=== PATIENT | male | born 1985 | race Hispanic/Latino ===

== ENCOUNTER 2016-09-16 03:21 | Emergency (ER) | payer BC ==
[2016-09-16 03:47] LABS: Urine Drugs of Abuse Note Disclamer
[2016-09-16 03:59] LABS: Basophils % (Auto) 0.3 % (0.0-1.8); Eosinophils % (Auto) 4.2 % (0.0-4.3); Hematocrit 37.9 % (35.5-45.6); Hemoglobin 12.3 gm/dl (11.8-15.2); Mean Corpuscular HGB Conc 33 % (32-34); Mean Corpuscular Hemoglobin 28 pg (28-32); Mean Corpuscular Volume 87 fl (84-94); Platelet Count 254 K/mm3 (140-440); Red Blood Count 4.36 M/mm3 (3.65-5.03); White Blood Count 17.9 K/mm3 (4.5-11.0)
[2016-09-16] MEDS ORDERED: NACL 0.9% 1000 ML 1,000 ML IV ONE ×3 (04:13→06:42)
[2016-09-16 04:19] LABS: Bacteria,Urine 1+ /HPF (Negative); Bilirubin,Urine NEG (Negative); Blood,Urine NEG (Negative); Ketones,Urine NEG (Negative); Leukocyte Esterase,Urine MOD (Negative); Mucus,Urine FEW /HPF; Nitrite,Urine NEG (Negative); Urobilinogen,Urine < 2.0 mg/dL (<2.0)
[2016-09-16 04:49] LABS: Chloride TNR mmol/L (98-107); Potassium TNR mmol/L (3.6-5.0); Sodium TNR mmol/L (137-145)
[2016-09-16 04:50] LABS: Anion Gap TNR mmol/L; BUN/Creatinine Ratio TNR; Blood Urea Nitrogen TNR mg/dL (9-20); Calcium TNR mg/dL (8.4-10.2); Carbon Dioxide TNR mmol/L (22-30); Glucose TNR mg/dL (75-100)
--- NOTE | 2016-09-16 05:17 | Emergency Department Report ---
Blank Doc - Documentation Documentation: 31-year-old male with heroin overdose. Patient admits to snorting heroin (with another pt who also presented to the ED). Pt Was found unresponsive respirations at 8 respiratory minute. Patient received Narcan 4 mg and woke up. He is currently alert and responsive. Resting tachycardia noted which patient claims is his baseline. Patient anxious to leave but explained he needs a period of observation. He is cooperative at this time. However, because patient was anxious to leave initially I did sign a 1013 until he could be further cleared given that patient required Narcan for heroin overdose ( minimal 2 hours after Narcan dose). Initial labs were hemolyzed and repeat ordered. Patient has urinary leukocytosis and given a gonorrhea chlamydia ordered. 2 L of normal saline ordered. Hemoglobin A1c added for initial glucose of 200 supported on initial hemolyzed BMP. Patient to be fully seen and further evaluated by a.m. physician and 1013 may be rescinded as needed.
[2016-09-16 05:23] LABS: Anion Gap 13 mmol/L; BUN/Creatinine Ratio 8.75; Blood Urea Nitrogen 7 mg/dL (9-20); Carbon Dioxide 31 mmol/L (22-30); Chloride 101.9 mmol/L (98-107); Creatine Kinase 77 units/L (55-170); Glucose 121 mg/dL (75-100); Potassium 4.2 mmol/L (3.6-5.0); Sodium 142 mmol/L (137-145)
--- NOTE | 2016-09-16 06:23 | Emergency Department Report ---
History of Present Illness - General Chief Complaint: Overdose Stated Complaint: OVERDOSE Time Seen by Provider: 09/16/16 04:12 Source: EMS Mode of arrival: Stretcher Limitations: Physical Limitation - History of Present Illness Initial Comments: The patient is here with another individual who was also abusing substances. Patient admits to taking by mouth Adderall as well as Xanax and snorting heroin. He denies IV drug abuse. Apparently he was found with decreased respirations by EMS and given Narcan. He responded well to this. He was seen by Dr. Moya initially who noted that he had a persistent tachycardia and treated him with IV fluids. On my initial evaluation the patient does have a persistent tachycardia. Additional IV fluids were ordered. His labs were reviewed. The patient tells me that he is always tachycardic and this has been evaluated in the past and found to be his normal baseline. 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 I do not think this information is particularly reliable. The patient has abused amphetamines and that certainly may cause tachycardia. In any case the patient absolutely denies any intent of self-harm. He has a history of prior substance abuse. He is not interested in any sort of rehabilitation program. He is not particularly forthcoming about his psychiatric history but apparently he has been on Seroquel and Zoloft bupropion and and and Vistaril. Complaint: other (polysubstance abuse) -: Gradual, hour(s) Intent: other How Overdose Was Discovered: called 911 Context: Intentional Overdose: other Context: Accidental Overdose: wanted to get high Treatments Prior to Arrival: narcan - Related Data Home Medications Medication Instructions Recorded Confirmed Last Taken Propranolol [Inderal] 10 mg PO ONCE 09/16/16 09/16/16 Unknown Quetiapine Fumarate [Seroquel] 100 mg PO BID 09/16/16 09/16/16 Unknown Sertraline [Zoloft] 25 mg PO QDAY 09/16/16 09/16/16 Unknown buPROPion [Wellbutrin] 150 mg PO BID 09/16/16 09/16/16 Unknown hydrOXYzine PAMOATE [Vistaril] 25 mg PO BID 09/16/16 09/16/16 Unknown Previous Rx's Medication Instructions Recorded Last Taken Type Sulfamethoxazole/Trimethoprim 1 each PO BID #14 tablet 09/16/16 Unknown Rx [Bactrim DS TAB] Allergies Allergy/AdvReac Type Severity Reaction Status Date / Time No Known Allergies Allergy Verified 09/24/15 05:53 ED Review of Systems ROS: Stated complaint: OVERDOSE Other details as noted in HPI Constitutional: denies: chills, fever Eyes: denies: eye pain, eye discharge, vision change ENT: denies: ear pain, throat pain Respiratory: denies: cough, shortness of breath, wheezing Cardiovascular: denies: chest pain, palpitations Endocrine: no symptoms reported Gastrointestinal: denies: abdominal pain, nausea, diarrhea Genitourinary: denies: urgency, dysuria Musculoskeletal: denies: back pain, joint swelling, arthralgia Skin: denies: rash, lesions Neurological: denies: headache, weakness, paresthesias Psychiatric: denies: anxiety, depression Hematological/Lymphatic: denies: easy bleeding, easy bruising ED Past Medical Hx - Past Medical History Previous Medical History?: No - Surgical History Past Surgical History?: No - Social History Smoking Status: Current Every Day Smoker Substance Use Type: Heroin - Medications Home Medications: Home Medications Medication Instructions Recorded Confirmed Last Taken Type Propranolol [Inderal] 10 mg PO ONCE 09/16/16 09/16/16 Unknown History Quetiapine Fumarate [Seroquel] 100 mg PO BID 09/16/16 09/16/16 Unknown History Sertraline [Zoloft] 25 mg PO QDAY 09/16/16 09/16/16 Unknown History Sulfamethoxazole/Trimethoprim 1 each PO BID #14 tablet 09/16/16 Unknown Rx [Bactrim DS TAB] buPROPion [Wellbutrin] 150 mg PO BID 09/16/16 09/16/16 Unknown History hydrOXYzine PAMOATE [Vistaril] 25 mg PO BID 09/16/16 09/16/16 Unknown History ED Physical Exam - General Limitations: Physical Limitation General appearance: alert, in no apparent distress - Head Head exam: Present: atraumatic, normocephalic - Eye Eye exam: Present: normal appearance, PERRL, EOMI. Absent: scleral icterus - ENT ENT exam: Present: mucous membranes moist - Neck Neck exam: Present: normal inspection - Respiratory Respiratory exam: Present: normal lung sounds bilaterally. Absent: respiratory distress - Cardiovascular Cardiovascular Exam: Present: normal rhythm, tachycardia. Absent: systolic murmur, diastolic murmur, rubs, gallop - GI/Abdominal GI/Abdominal exam: Present: soft, normal bowel sounds. Absent: distended, tenderness, guarding, rebound, rigid - Rectal Rectal exam: Present: deferred - Extremities Exam Extremities exam: Present: normal inspection - Back Exam Back exam: Present: normal inspection - Neurological Exam Neurological exam: Present: alert, oriented X3, CN II-XII intact. Absent: motor sensory deficit - Psychiatric Psychiatric exam: Present: anxious, flat affect - Skin Skin exam: Present: warm, dry, intact, normal color. Absent: rash ED Course Vital Signs 09/16/16 09/16/16 09/16/16 03:33 03:35 04:32 Temperature 98 F Pulse Rate 109 H 122 H Respiratory 18 18 20 Rate Blood Pressure 129/98 127/79 [Left] O2 Sat by Pulse 100 100 99 Oximetry 09/16/16 07:53 Temperature Pulse Rate 102 H Respiratory 18 Rate Blood Pressure 118/65 [Left] O2 Sat by Pulse Oximetry - Reevaluation(s) Reevaluation #1: Patient was given IV fluid. He was observed. He had no recurrence of somnolence or apparent opioid overdose syndrome. His tachycardia improved. He was given ceftriaxone as his urinalysis was consistent with a UTI. He denied any symptoms of UTI or urethral discharge. He will be discharged on antibiotic. A urine culture was obtained. Follow-up is recommended. Outpatient resources are given. 09/16/16 09:19 ED Medical Decision Making - Lab Data Result diagrams: 09/16/16 03:38 09/16/16 04:52 Laboratory Results - last 24 hr 09/16/16 09/16/16 09/16/16 03:33 03:33 03:38 WBC RBC Hgb Hct MCV MCH MCHC RDW Plt Count Lymph % (Auto) [place] % (Auto) Eos % (Auto) Baso % (Auto) Lymph # [place] # Eos # Baso # Seg Neutrophils % Seg Neutrophils # Sodium TNR Potassium TNR Chloride TNR Carbon Dioxide TNR Anion Gap TNR BUN TNR Creatinine TNR Estimated GFR TNR BUN/Creatinine Ratio TNR Glucose TNR Hemoglobin A1c Calcium TNR Total Creatine Kinase Urine Color Yellow Urine Turbidity Slightly-cloudy Urine pH 6.0 Ur Specific [place] 1.012 Urine Protein 100 mg/dl Urine Glucose (UA) >=500 Urine Ketones Neg Urine Blood Neg Urine Nitrite Neg Urine Bilirubin Neg Urine Urobilinogen < 2.0 Ur Leukocyte Esterase Mod Urine WBC (Auto) 123.0 H Urine RBC (Auto) 5.0 U Epithel Cells (Auto) 1.0 Urine Bacteria (Auto) 1+ Urine Mucus Few Urine Opiates Screen Presumptive positive Urine Methadone Screen Presumptive negative Ur Barbiturates Screen Presumptive negative Ur Phencyclidine Scrn Presumptive negative Ur Amphetamines Screen Presumptive positive U Benzodiazepines Scrn Presumptive positive Urine Cocaine Screen Presumptive positive U Marijuana (THC) Screen Presumptive negative Drugs of Abuse Note Disclamer Plasma/Serum Alcohol 09/16/16 09/16/16 09/16/16 03:38 03:38 03:38 WBC 17.9 H RBC 4.36 Hgb 12.3 Hct 37.9 MCV 87 MCH 28 MCHC 33 RDW 15.0 Plt Count 254 Lymph % (Auto) 11.9 L [place] % (Auto) 3.4 Eos % (Auto) 4.2 Baso % (Auto) 0.3 Lymph # 2.1 [place] # 0.6 Eos # 0.7 H Baso # 0.0 Seg Neutrophils % 80.2 H Seg Neutrophils # 14.3 H Sodium Potassium Chloride Carbon Dioxide Anion Gap BUN Creatinine Estimated GFR BUN/Creatinine Ratio Glucose Hemoglobin A1c 5.4 Calcium Total Creatine Kinase Urine Color Urine Turbidity Urine pH Ur Specific [place] Urine Protein Urine Glucose (UA) Urine Ketones Urine Blood Urine Nitrite Urine Bilirubin Urine Urobilinogen Ur Leukocyte Esterase Urine WBC (Auto) Urine RBC (Auto) U Epithel Cells (Auto) Urine Bacteria (Auto) Urine Mucus Urine Opiates Screen Urine Methadone Screen Ur Barbiturates Screen Ur Phencyclidine Scrn Ur Amphetamines Screen U Benzodiazepines Scrn Urine Cocaine Screen U Marijuana (THC) Screen Drugs of Abuse Note Plasma/Serum Alcohol < 0.01 09/16/16 04:52 WBC RBC Hgb Hct MCV MCH MCHC RDW Plt Count Lymph % (Auto) [place] % (Auto) Eos % (Auto) Baso % (Auto) Lymph # [place] # Eos # Baso # Seg Neutrophils % Seg Neutrophils # Sodium 142 Potassium 4.2 Chloride 101.9 Carbon Dioxide 31 H Anion Gap 13 BUN 7 L Creatinine 0.8 Estimated GFR > 60 BUN/Creatinine Ratio 8.75 Glucose 121 H Hemoglobin A1c Calcium 8.0 L Total Creatine Kinase 77 Urine Color Urine Turbidity Urine pH Ur Specific [place] Urine Protein Urine Glucose (UA) Urine Ketones Urine Blood Urine Nitrite Urine Bilirubin Urine Urobilinogen Ur Leukocyte Esterase Urine WBC (Auto) Urine RBC (Auto) U Epithel Cells (Auto) Urine Bacteria (Auto) Urine Mucus Urine Opiates Screen Urine Methadone Screen Ur Barbiturates Screen Ur Phencyclidine Scrn Ur Amphetamines Screen U Benzodiazepines Scrn Urine Cocaine Screen U Marijuana (THC) Screen Drugs of Abuse Note Plasma/Serum Alcohol - EKG Data -: EKG Interpreted by Me EKG shows normal: sinus rhythm Rate: tachycardia - EKG Data Interpretation: no acute changes Critical care attestation.: If time is entered above; I have spent that time in minutes in the direct care of this critically ill patient, excluding procedure time. ED Disposition Clinical Impression: Polysubstance abuse UTI (urinary tract infection) Qualifiers: Urinary tract infection type: site unspecified Hematuria presence: with hematuria Qualified Code(s): N39.0 - Urinary tract infection, site not specified ; R31.9 - Hematuria, unspecified Disposition: DISCHARGED TO HOME OR SELFCARE Is pt being admited?: No Does the pt Need Aspirin: No Condition: Stable Instructions: Polysubstance Abuse (ED), Urinary Tract Infection in Men (ED) Additional Instructions: Return as needed any fever chills or acute change. Follow-up on your drug abuse problem with [facility]. Follow-up on your UTI with Dr. Acuna or [facility]. A urine culture will be resulted in 2-3 days. Your doctor will need to check this. Rx as directed. Prescriptions: Sulfamethoxazole/Trimethoprim [Bactrim DS TAB] 1 each PO BID #14 tablet Referrals: PRIMARY CAREMD [Primary Care Provider] - 3-5 Days [facility] [Outside] - 3-5 Days [facility] [Provider Group] - 3-5 Days WOODY ACUNA MD [Staff Physician] - 2-3 Days Time of Disposition: 09:22
[2016-09-16] MEDS ORDERED: ROCEPHIN/NS 1 GM/50 ML 1 GM/50 ML BAG IV ONE (06:41)
[2016-09-16] MEDS ORDERED: MILK OF MAGNESIA PO PRN (06:46)
[2016-09-16] MEDS ORDERED: TYLENOL PO PRN (06:46)
[2016-09-16] MEDS ORDERED: ALUM-MAG HYDROX-SIMETH 200-200-20MG/5ML PO PRN (06:46)
[2016-09-16 07:54] VITALS: BP 118/65
== END 2016-09-16 09:54 | disposition home or self-care (01) ==
LOC: EEVIPCON 03:21 → ED 03:21
DX: F19.10 Other psychoactive substance abuse, uncomplicated (principal); N39.0 Urinary tract infection, site not specified; R31.9 Hematuria, unspecified; F17.200 Nicotine dependence, unspecified, uncomplicated
CPT/HCPCS: 36415; 80048; 80307; 81001; 82550; 83036; 85025; 87086; 93005; 93010; 96361; 96365; 99284; G0480; J0696; J7030; 80320

== ENCOUNTER 2016-09-23 11:08 | Emergency (ER) | payer BC ==
[2016-09-23 12:39] LABS: Basophils % (Auto) 0.3 % (0.0-1.8); Eosinophils % (Auto) 3.3 % (0.0-4.3); Hematocrit 39.1 % (35.5-45.6); Hemoglobin 12.9 gm/dl (11.8-15.2); Mean Corpuscular HGB Conc 33 % (32-34); Mean Corpuscular Hemoglobin 28 pg (28-32); Mean Corpuscular Volume 85 fl (84-94); Platelet Count 278 K/mm3 (140-440); Red Blood Count 4.58 M/mm3 (3.65-5.03); Red Cell Distribution Width 15.5 % (13.2-15.2); White Blood Count 7.5 K/mm3 (4.5-11.0)
[2016-09-23 12:45] LABS: Urine Drugs of Abuse Note Disclamer
[2016-09-23 12:57] LABS: Anion Gap 13 mmol/L; BUN/Creatinine Ratio 11.25; Blood Urea Nitrogen 9 mg/dL (9-20); Carbon Dioxide 28 mmol/L (22-30); Chloride 105.9 mmol/L (98-107); Glucose 87 mg/dL (75-100); Potassium 3.6 mmol/L (3.6-5.0); Sodium 143 mmol/L (137-145)
[2016-09-23 12:58] LABS: Bilirubin,Urine NEG (Negative); Blood,Urine NEG (Negative); Ketones,Urine NEG (Negative); Leukocyte Esterase,Urine NEG (Negative); Mucus,Urine 3+ /HPF; Nitrite,Urine NEG (Negative); Urobilinogen,Urine < 2.0 mg/dL (<2.0)
--- NOTE | 2016-09-23 21:11 | Emergency Department Report ---
ED Medical Clearance HPI - General Chief complaint: Medical Clearance Stated complaint: NEEDS DETOX PROGRAM Time Seen by Provider: 09/23/16 21:02 Source: patient, RN notes reviewed, old records reviewed Mode of arrival: Ambulatory Limitations: No Limitations - History of Present Illness Initial comments: This is a 31-year-old male. He is previously unknown to me. He presents to the ER for medical clearance for narcotic detox. He indicates that he ingests heroin by snorting it. He denies other coingestions. He indicates he wants to detox from heroin He is not homicidal or suicidal. He denies hallucinations. He denies headache , neck pain, chest pain, abdominal pain or shortness of breath. His last ingestion was over 24 hours ago. MD Complaint: medical clearance request Reason for Medical Clearance: psychiatric condition Alledged Intoxication: No Traumatic Symptoms: denies traumatic injury Associated Symptoms: denies: chest pain, shortness of breath, palpitations, diaphoresis, denies other symptoms, confusion, cough, fever/chills, headaches, anorexia, malaise, nausea/vomiting, rash, seizure, syncope, weakness Treatments Prior to Arrival: none Home medications: Home Medications Medication Instructions Recorded Confirmed Last Taken Propranolol [Inderal] 10 mg PO ONCE 09/16/16 09/16/16 Unknown Quetiapine Fumarate [Seroquel] 100 mg PO BID 09/16/16 09/16/16 Unknown Sertraline [Zoloft] 25 mg PO QDAY 09/16/16 09/16/16 Unknown buPROPion [Wellbutrin] 150 mg PO BID 09/16/16 09/16/16 Unknown hydrOXYzine PAMOATE [Vistaril] 25 mg PO BID 09/16/16 09/16/16 Unknown Previous Rx's Medication Instructions Recorded Last Taken Type Sulfamethoxazole/Trimethoprim 1 each PO BID #14 tablet 09/16/16 Unknown Rx [Bactrim DS TAB] Ondansetron [Zofran Odt] 4 mg PO QID PRN #20 tab.rapdis 09/23/16 Unknown Rx cloNIDine [Catapres] 0.1 mg PO BID PRN #15 tablet 09/23/16 Unknown Rx Allergies/Adverse reactions: Allergies Allergy/AdvReac Type Severity Reaction Status Date / Time No Known Allergies Allergy Verified 09/23/16 12:26 ED Review of Systems ROS: Stated complaint: NEEDS DETOX PROGRAM Other details as noted in HPI ED Past Medical Hx - Past Medical History Hx Psychiatric Treatment: Yes (ANXIETY / DEPRESSION) - Surgical History Past Surgical History?: No - Social History Smoking Status: Former Smoker Substance Use Type: Heroin - Medications Home Medications: Home Medications Medication Instructions Recorded Confirmed Last Taken Type Propranolol [Inderal] 10 mg PO ONCE 09/16/16 09/16/16 Unknown History Quetiapine Fumarate [Seroquel] 100 mg PO BID 09/16/16 09/16/16 Unknown History Sertraline [Zoloft] 25 mg PO QDAY 09/16/16 09/16/16 Unknown History Sulfamethoxazole/Trimethoprim 1 each PO BID #14 tablet 09/16/16 Unknown Rx [Bactrim DS TAB] buPROPion [Wellbutrin] 150 mg PO BID 09/16/16 09/16/16 Unknown History hydrOXYzine PAMOATE [Vistaril] 25 mg PO BID 09/16/16 09/16/16 Unknown History Ondansetron [Zofran Odt] 4 mg PO QID PRN #20 tab.rapdis 09/23/16 Unknown Rx cloNIDine [Catapres] 0.1 mg PO BID PRN #15 tablet 09/23/16 Unknown Rx ED Physical Exam - General Limitations: No Limitations General appearance: alert, in no apparent distress - Head Head exam: Present: atraumatic, normocephalic - Eye Eye exam: Present: normal appearance, PERRL, EOMI. Absent: nystagmus - ENT ENT exam: Present: normal exam, normal orophraynx, mucous membranes moist, normal external ear exam - Neck Neck exam: Present: normal inspection, full ROM. Absent: tenderness, meningismus - Respiratory Respiratory exam: Present: normal lung sounds bilaterally. Absent: respiratory distress, wheezes, rales, rhonchi, stridor, chest wall tenderness, accessory muscle use, decreased breath sounds, prolonged expiratory - Cardiovascular Cardiovascular Exam: Present: regular rate, normal rhythm, normal heart sounds. Absent: bradycardia, tachycardia, irregular rhythm, systolic murmur, diastolic murmur, rubs, gallop - GI/Abdominal GI/Abdominal exam: Present: soft, normal bowel sounds. Absent: distended, tenderness, guarding, rebound, rigid, pulsatile mass - Rectal Rectal exam: Present: deferred - Extremities Exam Extremities exam: Present: normal inspection, full ROM, normal capillary refill. Absent: tenderness, pedal edema, joint swelling, calf tenderness - Back Exam Back exam: Present: normal inspection, full ROM. Absent: tenderness, CVA tenderness (R), CVA tenderness (L), muscle spasm, paraspinal tenderness, vertebral tenderness - Neurological Exam Neurological exam: Present: alert, oriented X3, normal gait, other (Extraocular movements intact. Tongue midline. No facial droop. Facial sensation intact to light touch in the V1, V2, V3 distribution bilaterally. 5 and 5 strength in 4 extremities.. Sensation is intact to light touch in 4 extremities.). Absent : motor sensory deficit - Psychiatric Psychiatric exam: Present: normal affect, normal mood. Absent: homicidal ideation, suicidal ideation - Skin Skin exam: Present: warm, dry, intact, normal color. Absent: rash ED Course Vital Signs 09/23/16 09/23/16 12:21 21:00 Temperature 98.2 F 98.4 F Pulse Rate 84 67 Respiratory 16 16 Rate Blood Pressure 105/67 Blood Pressure 111/76 [Right] O2 Sat by Pulse 99 98 Oximetry - Reevaluation(s) Reevaluation #1: 09/23/16 21:53 differential diagnosis: Medical clearance, heroin dependence, general medical evaluation Assessment and plan: 31-year-old male here for medical clearance for detox. He is no acute medical complaints, he is alert and oriented 3, he has a GCS of 15 , with an NIH score of 0, walks with a steady gait, and is clinically sober at this time. He has no indication for 1013 or involuntary hold. His physical examination is unremarkable, his laboratory studies are unremarkable. At this point in time, I see no immediate medical contraindication to psychiatric consultation and consultation for detox therapy. He is given resources for outpatient detox. He is also given prescription for medications to assist with symptoms for withdrawal. ED Medical Decision Making - Lab Data Result diagrams: 09/23/16 12:28 09/23/16 12:28 Vital Signs 09/23/16 09/23/16 12:21 21:00 Temperature 98.2 F 98.4 F Pulse Rate 84 67 Respiratory 16 16 Rate Blood Pressure 105/67 Blood Pressure 111/76 [Right] O2 Sat by Pulse 99 98 Oximetry Labs 09/23/16 09/23/16 09/23/16 12:28 12:28 12:28 WBC 7.5 RBC 4.58 Hgb 12.9 Hct 39.1 MCV 85 MCH 28 MCHC 33 RDW 15.5 H Plt Count 278 Lymph % (Auto) 28.0 [place] % (Auto) 5.8 Eos % (Auto) 3.3 Baso % (Auto) 0.3 Lymph # 2.1 [place] # 0.4 Eos # 0.2 Baso # 0.0 Seg Neutrophils % 62.6 Seg Neutrophils # 4.7 Sodium 143 Potassium 3.6 Chloride 105.9 Carbon Dioxide 28 Anion Gap 13 BUN 9 Creatinine 0.8 Estimated GFR > 60 BUN/Creatinine Ratio 11.25 Glucose 87 Calcium 9.0 Urine Color Urine Turbidity Urine pH Ur Specific [place] Urine Protein Urine Glucose (UA) Urine Ketones Urine Blood Urine Nitrite Urine Bilirubin Urine Urobilinogen Ur Leukocyte Esterase Urine WBC (Auto) Urine RBC (Auto) Calcium Oxalate Crystal Urine Mucus Urine Opiates Screen Urine Methadone Screen Ur Barbiturates Screen Ur Phencyclidine Scrn Ur Amphetamines Screen U Benzodiazepines Scrn Urine Cocaine Screen U Marijuana (THC) Screen Drugs of Abuse Note Plasma/Serum Alcohol < 0.01 09/23/16 09/23/16 12:36 12:36 WBC RBC Hgb Hct MCV MCH MCHC RDW Plt Count Lymph % (Auto) [place] % (Auto) Eos % (Auto) Baso % (Auto) Lymph # [place] # Eos # Baso # Seg Neutrophils % Seg Neutrophils # Sodium Potassium Chloride Carbon Dioxide Anion Gap BUN Creatinine Estimated GFR BUN/Creatinine Ratio Glucose Calcium Urine Color Yellow Urine Turbidity Clear Urine pH 6.0 Ur Specific [place] 1.024 Urine Protein 30 mg/dl Urine Glucose (UA) Neg Urine Ketones Neg Urine Blood Neg Urine Nitrite Neg Urine Bilirubin Neg Urine Urobilinogen < 2.0 Ur Leukocyte Esterase Neg Urine WBC (Auto) 2.0 Urine RBC (Auto) 1.0 Calcium Oxalate [place] Few Urine Mucus 3+ Urine Opiates Screen Presumptive negative Urine Methadone Screen Presumptive positive Ur Barbiturates Screen Presumptive negative Ur Phencyclidine Scrn Presumptive negative Ur Amphetamines Screen Presumptive positive U Benzodiazepines Scrn Presumptive negative Urine Cocaine Screen Presumptive negative U Marijuana (THC) Screen Presumptive negative Drugs of Abuse Note Disclamer Plasma/Serum Alcohol ED Disposition Clinical Impression: Heroin dependence Disposition: DISCHARGED TO HOME OR SELFCARE Is pt being admited?: No Does the pt Need Aspirin: No Condition: Stable Additional Instructions: Laboratory studies were unremarkable. At this point in time, it does not appear that there is any immediate medical contraindication to detox therapy. For your convenience, I have listed to other local facilities that participate narcotic detox. I have also prescribed medications to assist with symptoms of withdrawal. Please follow up with the detox referrals as soon as possible. Return to the ER right away with fevers or chills, chest pain or shortness of breath, nausea or vomiting, inability to tolerate liquid feeds. [facility] Address: [address], [place] [address] [facility] Address: [address] [place] [address] , [place] [address] Referrals: PRIMARY CAREMD [Primary Care Provider] - 3-5 Days [facility] [Outside] - 3-5 Days [facility] [Outside] - 3-5 Days
[2016-09-23] MEDS ORDERED: CATAPRES PO ONE (21:58)
[2016-09-24] MEDS ORDERED: CATAPRES ONE (00:37)
[2016-09-24 00:46] VITALS: BP 106/72
== END 2016-09-24 00:44 | disposition home or self-care (01) ==
LOC: ED 11:08 → EEVIPCON 11:08 → ED 09-24 00:44
DX: F11.229 Opioid dependence with intoxication, unspecified (principal)
CPT/HCPCS: 36415; 80048; 80307; 81001; 85025; 99283; G0480; 80320